=== PATIENT | male | born 1965 | race Caucasian/White ===

== ENCOUNTER 2021-06-10 17:13 | Emergency (ER) | payer OTHER, SELFPAY ==
--- NOTE | ~2021-06-10 | XR_ITS ---
EXAMINATION: XR chest 2V Exam Date/Time: 06/10/2021 17:33 CDT CLINICAL HISTORY: cough, fever Comparison: 11/10/2015. RESULT: Lines, tubes, and devices: None. Lungs and pleura: Clear. Cardiomediastinal silhouette: Stable cardiomediastinal silhouette. Other: No acute osseous or upper abdominal finding. IMPRESSION: No acute cardiopulmonary process Reviewed, dictated and finalized at location K.
[2021-06-10 17:25] VITALS: BP 141/63; PULSE 94; RESP 20; TEMP 38.6; O2SAT 96
--- NOTE | 2021-06-10 17:40 | ED.GENADULT ---
HPI - General Adult General Chief complaint: Upper Respiratory Infection Stated complaint: cough Source: patient Mode of arrival: ambulatory Limitations: no limitations History of Present Illness HPI narrative: Patient presents for evaluation of respiratory symptoms since today. Symptoms include cough, shortness of breath, pleuritic chest pain, fever, chills, body aches, fatigue, and generalized weakness. No sore throat, otalgia, nausea, vomiting or diarrhea. He rates his chest pain as 6/10. He does not have any chest pain other than with his cough and deep inspiration. No recent sick contacts to his knowledge. His and child with whom he lives do not have similar symptoms. No underlying history of hypertension, hyperlipidemia, diabetes, tobacco use. He smokes 2 packs/day. No hx of SC or CVA. He states he has a history of a lung nodule that is under active surveillance. No established diagnosis of asthma or COPD. He did receive both doses of his COVID vaccination but did not receive influenza vaccination. He took tylenol without considerable improvement in his symptoms. Related Data Home Medications Medication Instructions Recorded Confirmed atorvastatin 40 mg PO DAILY 06/10/21 06/10/21 dapagliflozin [Farxiga] 10 mg PO DAILY 06/10/21 06/10/21 glimepiride 4 mg PO DAILY 06/10/21 06/10/21 lisinopril 10 mg PO DAILY 06/10/21 06/10/21 metformin 500 mg PO TID 06/10/21 06/10/21 Allergies Allergy/AdvReac Type Severity Reaction Status Date / Time codeine Allergy Unknown Verified 06/10/21 17:39 Review of Systems Review of Systems: CONSTITUTIONAL: Reports fever, chills, weakness and fatigue EYES: Denies visual changes, redness, or discharge. ENT: Denies rhinorrhea, congestion, sore throat, or otalgia. CARDIOVASCULAR: Reports pleuritic chest pain. Denies chest pain otherwise. Denies palpitations, or edema. RESPIRATORY: Reports cough and SOB. GASTROINTESTINAL: Denies abdominal pain, nausea, vomiting, or diarrhea. GENITOURINARY: Denies dysuria or hematuria. SKIN: Denies rash or itching. MUSCULOSKELETAL: Denies back pain, joint pain, or myalgia. NEUROLOGIC: Denies headache, numbness, dizziness, or weakness. PSYCHIATRIC: Denies anxiety or depression. [facility] Past Medical History Medical History Diabetes Hyperlipidemia Hypertension Lung nodule Tobacco use Surgical History Surgical History No pertinent past surgical history Family History Family History Mother Family history non-contributory Social History Social History Smoking packs per day: 2 Smoking cigarettes per day: 40.0 Smoking status: Heavy tobacco smoker Second hand tobacco smoke exposure: No Alcohol intake: current Alcohol use details: social Substance use: never Living arrangements: with family Gender identity (if verbalized by the patient): Male Sexual Orientation (if Verbalized by the Patient): Straight or Heterosexual Spiritual care concerns: No Exam Narrative: GENERAL: Well-appearing, well-nourished, and in no acute distress. HEAD: Normocephalic, atraumatic. EYES: PERRLA and EOMI. ENT: Nares clear, no rhinorrhea or epistaxis. Mucous membranes moist. Oropharynx without tonsillar hypertrophy exudate or other lesions. Bilateral TMs pearly espinal nonbulging NECK: Supple. No adenopathy or masses. No carotid bruits or JVD CHEST: Cough noted on exam. Clear to auscultation. No respiratory distress. No wheezes rales or rhonchi HEART: Regular rate and rhythm. No murmur heard. Normal peripheral pulses. ABDOMEN: Soft, nontender, nondistended, normal active bowel sounds. EXTREMITIES: Normal range of motion. No edema. SKIN: Warm, dry, no rash. NEURO: No focal deficits. Alert and oriented x3. PSYCH: Normal mood and affect. Course Course Liz
[2021-06-10 17:50] VITALS: TEMP 38.6
[2021-06-10] MEDS: ACETAMINOPHEN 500 MG TABLET 1000 MG PO (17:50)
[2021-06-10 18:22] VITALS: TEMP 37.6
--- NOTE | 2021-06-10 18:22 | PC.NURSE ---
1821- Pt snoring on stretch with son at bedside upon entering room. When I woke pt and asked how he felt. Pt stated, he felt better. PLACING JUDGE notified.
[2021-06-10] MEDS: methylPREDNISolone SOD SUCC 125 MG VIAL IM (18:30)
[2021-06-10] MEDS: ALBUTEROL SULFATE NEB 2.5 MG/3 ML INH INHALATION (18:31)
[2021-06-10] MEDS: IPRATROPIUM BR 0.02% INH SOLN 0.5 MG/2.5 ML VIAL INHALATION (18:31)
[2021-06-10 19:00] VITALS: TEMP 36.7
[2021-06-10 19:04] LABS: Glucose Point of Care 208 mg/dl (65-105)
== END 2021-06-10 19:41 | disposition home or self-care (01) ==
PROVIDERS: Emergency Provider Nurse Practitioner; PCP Family Medicine Sports Medicine
DX: J06.9 Acute upper respiratory infection, unspecified (principal); Z20.822 Contact with and (suspected) exposure to COVID-19; E11.9 Type 2 diabetes mellitus without complications; E78.5 Hyperlipidemia, unspecified; I10 Essential (primary) hypertension; F17.210 Nicotine dependence, cigarettes, uncomplicated
CPT/HCPCS: 71046; 82948; 87426; 87804; 94640; 96372; 99213; A9270; C9803; G0463; J2930

== ENCOUNTER → 2022-12-18 10:07 | Outpatient (CLI) | payer OTHER, SELFPAY ==
--- NOTE | ~2022-12-18 | CT_ITS ---
CT Scan of the Chest without Contrast: Clinical Indication: Pulmonary nodule Technique: Contiguous sections were acquired throughout the chest without intravenous contrast. Dose reduction technique was used on this scan by utilizing automated exposure control and iterative recon struction technique. The dose-length product (DLP) was 179.27 mGy-cm. Findings: There is no evidence of any significant mediastinal, hilar or axillary lymphadenopathy. The mediastin al soft tissues appear normal. There is no evidence of pleural or pericardial effusion. 2 mm left lower lobe calcified granuloma present. No other pulmonary nodule seen. Images through the upper abdomen reveal no abnormalities. Impression: No significant pulmonary abnormality seen. Reviewed, dictated and finalized at location . N [employer]TER Impression: No significant pulmonary abnormality seen.
== END ==
PROVIDERS: PCP Family Medicine Sports Medicine; Visit Provider Family Medicine Sports Medicine
DX: R91.1 Solitary pulmonary nodule (principal)
CPT/HCPCS: 71250

== ENCOUNTER 2024-11-17 14:31 | Outpatient (CLI) | payer OTHER, SELFPAY ==
--- NOTE | ~2024-11-17 | US_ITS ---
EXAMINATION: US soft tissue LE LT DATE: 11/17/2024 14:51 INDICATION: Localized swelling, mass or lump. Left knee TECHNIQUE: Multiple grayscale and Doppler ultrasound images of the region of the palpable abnormality at the anterior left knee were obtained. COMPARISON: None FINDINGS: 4.0 x 0.8 x 3.1 cm regions of complex cystic lesion in the subcutaneous tissues at the region of concern. There are anechoic fluid pockets along with hypoechoic regions with thin linear echogenic septations. Small amount of vascular flow at the periphery of the lesion with no internal vascular flow on color Doppler. IMPRESSION: 1. 4.0 x 3.1 x 0.8 cm complex cystic lesion in the subcutaneous tissues at the region of concern for which differential would include evolving hematoma, abscess in the appropriate clinical setting or bursitis. Reviewed, dictated and finalized at location A. IMPRESSION: 1. 4.0 x 3.1 x 0.8 cm complex cystic lesion in the subcutaneous tissues at the region of concern for which differential would include evolving hematoma, absce ss in the appropriate clinical setting or bursitis.
--- NOTE | ~2024-11-17 | XR_ITS ---
EXAMINATION: [id number], 11/17/2024 14:47 CDT HISTORY: L anterior knee pain COMPARISON: No comparisons available. Findings: No acute fracture or malalignment. No significant degenerative changes. Soft tissues unremarkable. Impression: No acute fracture or malalignment. Reviewed, dictated and finalized at location P. Impression: No acute fracture or malalignment.
--- NOTE | ~2024-11-17 | XR_ITS ---
EXAMINATION: XR shoulder LT min 2V, 11/17/2024 14:47 CDT HISTORY: Adhesive capsulitis L shoulder COMPARISON: No comparisons available. Findings: No acute fracture or malalignment. No significant degenerative changes. Soft tissues unremarkable. Impression: No acute fracture or malalignment. Reviewed, dictated and finalized at location P. Impression: No acute fracture or malalignment.
== END 2024-11-17 14:32 | disposition home or self-care (01) ==
PROVIDERS: Visit Provider Nurse Practitioner Family
DX: R22.42 Localized swelling, mass and lump, left lower limb (principal)
CPT/HCPCS: 73030; 73560; 76882

== ENCOUNTER 2024-11-27 15:31 | Outpatient (CLI) | payer OTHER, SELFPAY ==
--- NOTE | ~2024-11-27 | CT_ITS ---
EXAMINATION:CT lung screening DATE: 11/27/2024 15:57 INDICATION: Personal history of nicotine dependence. TECHNIQUE: Computed tomography (CT) of the chest was performed without intravenous contrast. Automated exposure control and iterative reconstruction technique were employed. The dose-length product (DLP) was 176.90 mGy-cm. COMPARISON: Chest CT 12/18/2022 FINDINGS: There is mild emphysema. A calcified left lung nodule is consistent with old granulomatous disease. There is a 7 mm nodule in left lower lobe without change. There is a 2 mm nodule in left lower lobe. No pleural effusion. The heart size is normal. There are coronary artery calcifications. No pericardial effusion. There is mild bilateral gynecomastia. There is moderate thoracic spondylosis. There is mild chronic anterior wedging of multiple mid thoracic vertebral bodies. There are bridging endplate osteophytes at multiple levels in the spine, consistent with diffuse idiopathic skeletal hyperostosis (DISH). IMPRESSION: 1. Lung-RADS category 2: Benign appearance or behavior. Continue annual screening with noncontrast low-dose chest CT in 12 months. Reviewed, dictated and finalized at location E. IMPRESSION: 1. Lung-RADS category 2: Benign appearance or behavior. Continue annual screeni ng with noncontrast low-dose chest CT in 12 months.
== END 2024-11-27 15:32 | disposition home or self-care (01) ==
LOC: MICIMG 15:32
DX: Z12.2 Encounter for screening for malignant neoplasm of respiratory organs (principal); Z87.891 Personal history of nicotine dependence
CPT/HCPCS: 71271